=== PATIENT | male | born 1960 | race African-American/Black ===

== ENCOUNTER 2020-07-29 09:29 | Emergency (ER) | payer OTHER ==
[~2020-07-29] VITALS: Ht 180.3 cm; Wt 75.0 kg
--- NOTE | 2020-07-29 10:07 | PHYS DOC ---
General Adult EDM: Chief Complaint: MULTIPLE COMPLAINTS HPI: HPI: 59-year-old male who denies any significant past medical history, presents the ED with complaints of intermittent "mild" headaches, runny nose, body aches and lack of appetite for the past month. Patient states in the last month he got a call back from the local health department that his Covid test was positive - very poor historian, does not recall the date he was tested. Has no routine pmd, takes no daily medications. Drinks alcohol daily (1 beer this am) with occasional marijuana and tobacco use. States he has been taking TheraFlu daily. Took 2 aspirin and Fabienne-Alpine at 6 AM this morning. In ED he has no active headache or rhinorrhea. Denies any falls/head trauma, on no AC. Review of Systems: Review of Systems: Constitutional: Denies fever or chills Eyes: Denies change in visual acuity HENT: Denies nasal congestion or sore throat or sinus pressure Respiratory: Denies cough or shortness of breath or hemoptysis Cardiovascular: Denies chest pain or edema GI: Denies abdominal pain, nausea, vomiting, bloody stools or diarrhea : Denies dysuria or hematuria Musculoskeletal: Denies back pain or joint swelling Integument: Denies rash Neurologic: Denies neck stiffness/rigidity, focal weakness or sensory changes Endocrine: Denies polyuria or polydipsia Lymphatic: Denies swollen glands Psychiatric: Denies depression or anxiety Heart Score: Risk Factors: Risk Factors: DM, Current or recent (<one month) smoker, HTN, HLP, family history of CAD, obesity. Risk Scores: Score 0 - 3: 2.5% MACE over next 6 weeks - Discharge Home Score 4 - 6: 20.3% MACE over next 6 weeks - Admit for Clinical Observation Score 7 - 10: 72.7% MACE over next 6 weeks - Early Invasive Strategies Allergies: Allergies: Allergies Coded Allergies Type Severity Reaction Last Updated Verified No Known Drug Allergies 07/29/20 No Physical Exam: PE: Constitutional: Well developed, well nourished, no acute distress, non-toxic appearance. [] HENT: Normocephalic, atraumatic, oropharynx moist, no oral exudates/erythema, nose normal. [] Eyes: EOMI, conjunctiva normal, no discharge. [] Neck: Normal range of motion, no tenderness, supple, no stridor. [] Cardiovascular: S1 and S2 present Lungs & Thorax: Speaking in full sentences, no respiratory distress, 98-100% on room air Abdomen: soft, no tenderness, Skin: Warm, dry, no erythema, no rash. [] Back: No tenderness, no CVA tenderness. [] Extremities: No tenderness, no cyanosis, no clubbing, ROM intact, no edema. [] Neurologic: Alert and oriented X 3, normal motor function, normal sensory function, no focal deficits noted. [] Psychologic: Affect normal, judgement normal, mood normal. [] EKG: EKG: [] Radiology/Procedures: Radiology/Procedures: IMAGING REPORT Signed PATIENT: ANABELLA GLOVER ACCOUNT: [id number] : 1960 LOCATION: ER AGE: 59 SEX: M EXAM STATUS: REG ER ORD. PHYSICIAN: SUJIT ANDERSON DO REASON: COVID POSITIVE, COUGH, SHORTNESS OF BREATH PROCEDURE: CHEST AP ONLY CHEST AP ONLY History: COVID positive, cough, shortness of breath Comparison: None. Findings: Single view of the chest is submitted. There is mild apparent elevation of the left hemidiaphragm. There is somewhat tortuous thoracic aorta, some atherosclerotic calcification near aortic arch. There is no dependent pleural fluid or pneumothorax. No lobar infiltrate is identified by radiograph. The pericardial cardiac silhouette is within normal limits in size. Impression: 1. No significant infiltrate is identified by radiograph. Electronically signed by: Anatoliy Velasquez MD (07/29/2020 10:19 AM) [facility] DICTATED AND SIGNED BY: ANATOLIY VELASQUEZ MD DATE: 07/29/20 1019 CC: PCP,CONNIE; SUJIT ANDERSON DO ~ Course & Med Decision Making: Course & Med Decision Making Pertinent Labs and Imaging studies reviewed. (See chart for details) COVID-19 CRITERIA: The patient was evaluated during the global COVID-19 pandemic, and that diagnosis was suspected/considered upon their initial presentation. Their evaluation, treatment and testing was consistent with current guidelines for patients who present with complaints or symptoms that may be related to COVID-19. Concern for headache, rhinorrhea, and lack of appeptite in the setting of leukopenia and renal insufficiency, no prior for baseline comparison. Symptoms and lab consistent with covid. Influenza testing negative. No evidence of rhabdo or transaminitis. Will DC home with strict ED return precautions for neck stiffness, chest pain, strokelike symptoms or difficulties breathing-to avoid nsaids. Encouraged urgent outpatient follow-up with PMD and nephrology. Life-threatening processes were considered but are low suspicion at this time, given history and physical exam. Pt was educated on all prescription medications and adverse effects. All patient's questions were answered and pt was stable at time of discharge. Life/limb-threatening differential includes but is not limited to, surgical abdomen (appendicitis, cholecystitis, diverticulitis, inflammatory bowel disease, abscess, perforation), meningitis, encephalitis, Ruiz's angina, necrotizing fasciitis, endocarditis, life-threatening rash, viral syndrome, urologic emergencies (testicular torsion, obstructive nephropathy, prostatitis), head and neck abscess, sepsis or shock, or respiratory failure. I spoken with the patient and her caregivers. I explained the patient's condition, diagnoses and treatment plan based on the information available to me at this time. I have answered the patient and her caregiver's questions and addressed any concerns. The patient and her caregivers have a good understanding of patient's diagnosis, condition and treatment plan as can be expected at this point. Vital signs have been stable. Patient's condition is stable and appropriate for discharge from the emergency department. Patient will pursue further outpatient evaluation with primary care physician or other designated or consulting physician as outlined in the discharge instructions. The patient and/or caregivers are agreeable to this plan of care and follow-up instructions have been explained in detail. The patient and/or caregivers have received these instructions in written form and have expressed an understanding of the discharge instructions. The patient and/or caregivers are aware that any significant change of condition or worsening of symptoms should prompt immediate return to this or the closest emergency department or call to 911. Denny Disclaimer: Denny Disclaimer: This electronic medical record was generated, in whole or in part, using a voice recognition dictation system. Departure Departure: Impression: Primary Impression: Rhinorrhea Additional Impressions: Headache Renal insufficiency History of 2019 novel coronavirus disease (COVID-19) Disposition: DC HOME SELF CARE/HOMELESS Condition: STABLE Referrals: PCP,NO (PCP) FOLLOW UP WITH FAMILY MEDICINE: [facility], [facility] [address] [address] [place] [address], Patient Instructions: Chronic Renal Insufficiency, Headache and Allergies Additional Instructions: FOLLOW UP WITH NEPHROLOGY: [facility], , [place] Address: [address] [place] [address] [address] [place] [address] You have been tested for or diagnosed with COVID-19. It is an infection caused by a new type of coronavirus. COVID-19 will cause cold-like or mild flu symptoms in most. It can cause more severe symptoms like problems breathing in some. There is no treatment for COVID-19. The body will clear the infection over time. Self-care will help to ease discomfort. Steps to Take: Self-Care Rest as needed. Healthy habits may help you feel better. Steps include: Choose healthy foods including fruits and vegetables. Drink water throughout the day. Get plenty of sleep each night. If you smoke, try to quit. It may ease breathing. Avoid alcohol. Keep Others Healthy The virus can spread to others. Droplets are released every time you sneeze or cough. The droplets can get into the mouth, nose, or eyes of people near you and lead to infection. To lower the chances of spreading COVID-19 to others: Stay at home until your doctor has said it is safe to leave. If you tested positive this will mean staying isolated until both of the following are true: At least 7 days have passed since the start of illness. You are free of fever for at least 72 hours without the use of medicine. During this time: - Avoid public areas, events, or transportation. Do not return to work or school until your doctor has said it is safe to do so. - Call ahead if you need to go to a medical center. Let them know you may have COVID-19. It will help them guide you where to go. They may also ask you to wear a facemask when you come to the office. - If you call for emergency medical services, let them know you may have COVID- 19. While at home: - Try to avoid close contact with others. Stay about 6 feet away. - If possible, spend most of your time in a separate room from others. - Use a face mask if you will be in close contact with others such as sharing a room or vehicle. - Have someone wipe down common surfaces in the home. Use household acid dumper every day on areas like doorknobs, counters, or sinks. - Cough or sneeze into a tissue. Throw the tissue away right after use. If a tissue is not available, cough or sneeze into your elbow. - Wash your hands often. Wash them after sneezing or coughing. Use soap and water and wash for at least 20 seconds. Alcohol based hand vacuum cleaner operator can be used if soap and water is not available. - Do not prepare food for others. Avoid sharing personal items like forks, spoons, or toothbrushes. - Avoid close contact with pets while you are sick. There is no evidence of the virus passing to pets. This is a safety step until more is known about this virus. Isolation can be frustrating. Social interaction can help. Keep in touch with friends and family through phone and tech options. You can still interact with others in your home, just keep a safe distance of about 6 feet. Follow-up: Your doctors office will check in with you to see if there are any changes in your health. You may be asked to keep track of symptoms to share with them. They will also let you know when you are clear to be in public again. Problems to Look Out For: Contact your doctor if your recovery is not going as you expect. Get emergency care if you have problems such as: - Trouble breathing - Nonstop chest pain or pressure - Changes in awareness, confusion, or problems waking - Lips or face have bluish color - Worsening of symptoms If you think you have an emergency, call for emergency medical services right away. As taken from [facility] Acetaminophen (TYLENOL) 325 Mg Tablet 1-2 TAB PO QID for pain, #20 TAB 2 Refills Prov: SUJIT ANDERSON DO 07/29/20 SUJIT ANDERSON DO Jul 29, 2020 10:07
--- NOTE | 2020-07-29 10:22 | RAD ---
CHEST AP ONLY History: COVID positive, cough, shortness of breath Comparison: None. Findings: Single view of the chest is submitted. There is mild apparent elevation of the left hemidiaphragm. There is somewhat tortuous thoracic aorta, some atherosclerotic calcification near aortic arch. There is no dependent pleural fluid or pneumothorax. No lobar infiltrate is identified by radiograph. The pericardial cardiac silhouette is within normal limits in size. Impression: 1. No significant infiltrate is identified by radiograph. Electronically signed by: Mario Gibson MD (07/29/2020 10:19 AM) [facility]
[2020-07-29 10:43] LABS: BASO % 1 % (0-3); EOS # 0.1 x10^3/uL (0.0-0.7); EOS % 3 % (0-3); HEMATOCRIT 40.5 % (39.0-53.0); HEMOGLOBIN 13.1 g/dL (13.0-17.5); LYMPH # 1.3 x10^3/uL (1.0-4.8); LYMPH % 42 % (24-48); MEAN CORPUSCULAR HEMOGLOBIN 32 pg (25-35); MEAN CORPUSCULAR HGB CONC 32 g/dL (31-37); MEAN CORPUSCULAR VOLUME 99 fL (79-100); MONO # 0.4 x10^3/uL (0.0-1.1); MONO % 13 % (0-9); NEUT # 1.3 x10^3uL (1.8-7.7); NEUT % 41 % (31-73); PLATELET COUNT 217 x10^3/uL (140-400); RED BLOOD COUNT 4.08 x10^6/uL (4.30-5.70); RED CELL DISTRIBUTION WIDTH 13.4 % (11.5-14.5); WHITE BLOOD COUNT 3.2 x10^3/uL (4.0-11.0)
[2020-07-29 10:54] LABS: CALCIUM 8.6 mg/dL (8.5-10.1); CREATININE 1.7 mg/dL (0.7-1.3); GFR 50.3; POTASSIUM 3.8 mmol/L (3.5-5.1)
[2020-07-29 11:08] LABS: ALBUMIN 3.2 g/dL (3.4-5.0); ALBUMIN/GLOBULIN RATIO 1.2 (1.0-1.7); MAGNESIUM 2.3 mg/dL (1.8-2.4); PHOSPHORUS 3.3 mg/dL (2.6-4.7); TOTAL BILIRUBIN 0.3 mg/dL (0.2-1.0); TOTAL PROTEIN 5.9 g/dL (6.4-8.2)
[2020-07-29 11:11] VITALS: BP 103/51
[2020-07-29 11:18] LABS: INFLUENZA A PATIENT NEGATIVE (NEGATIVE); INFLUENZA B PATIENT NEGATIVE (NEGATIVE)
[2020-07-29] MEDS ORDERED: ACET325T9 PO (11:40)
== END 2020-07-29 12:12 | disposition home or self-care (01) ==
LOC: ER 09:29
DX: N28.9 Disorder of kidney and ureter, unspecified (principal); R51.9 Headache, unspecified; J34.89 Other specified disorders of nose and nasal sinuses; Z86.19 Personal history of other infectious and parasitic diseases; F12.10 Cannabis abuse, uncomplicated; Z72.0 Tobacco use
CPT/HCPCS: 36415; 71045; 80053; 82550; 83690; 83735; 84100; 84484; 85025; 87804; 99284; G0480